=== PATIENT | female | born 1980 | race Caucasian/White ===

== ENCOUNTER 2021-03-20 10:31 | Outpatient (REF) | payer OTHER, SELFPAY ==
--- NOTE | ~2021-03-20 | XR_ITS ---
EXAMINATION: XR KNEE, RIGHT CLINICAL INFORMATION: Knee injury with pain COMPARISON: None TECHNIQUE: Four views of the right knee. FINDINGS: There is no evidence of acute fracture or dislocation of the right knee. There is a small right knee effusion. Joint spaces are maintained. There is mild spurring undersurface of the patella. XR/XR knee RT 4V IMPRESSION: Small right knee effusion. Mild patellofemoral degenerative change. No acute fracture or dislocation.
== END 2021-03-20 10:32 | disposition home or self-care (01) ==
LOC: HO.HMGCX 10:31
PROVIDERS: PCP Internal Medicine; Visit Provider Nurse Practitioner Family
DX: S89.91XA Unspecified injury of right lower leg, initial encounter (principal)
CPT/HCPCS: 73564